=== PATIENT | male | born 1950 | race Caucasian/White ===

== ENCOUNTER 2017-04-27 12:57 | Observation (INO) | payer MEDICARE ==
[2017-04-27] MEDS ORDERED: Dexamethasone IV* 4 MG/ML 1 ML (4 MG) IV SLOW PU ONE (13:26)
[2017-04-27] MEDS ORDERED: diPHENhydraMINE IV* 50 MG/ML 1 ml VIAL (BENADRYL) IV ONE (13:26)
[2017-04-27] MEDS ORDERED: NS 0.9% 1000 ML* 1,000 ML IV ONE ×3 (13:26→16:30)
[2017-04-27] MEDS ORDERED: Famotidine IV* 10 MG/ML 2 ML (20 mg) IV ONE (13:26)
--- NOTE | 2017-04-27 14:00 | RAD ---
INDICATION: Chest pain. COMPARISON: There are no prior studies available for comparison. TECHNIQUE: A portable view of the chest was obtained. FINDINGS: Cardiac and mediastinal contours appear to be within normal limits. The lungs are underinflated. There are minimal infiltrates at both lung bases most consistent with atelectasis. No pleural effusion or pneumothorax is seen. IMPRESSION: NO EVIDENCE FOR ACUTE FINDING.
[2017-04-27 14:02] LABS: Hematocrit 40 % (42-52); Hemoglobin 13.7 g/dl (14.0-18.0); Mean Corpuscular HGB Conc 35 g/dl (31-36); Mean Corpuscular Hemoglobin 30 pg (27-31); Mean Corpuscular Volume 87 fL (80-94); Mean Platelet Volume 7 um3 (7.4-10.4); Red Cell Distribution Width 15 % (10.5-15); White Blood Count 2.1 10^3/ul (3.5-10.8)
[2017-04-27 14:03] LABS: Add Diff/Slide Review? Slide Review Added; Comments Flag Yes
[2017-04-27 14:24] LABS: ALT 12 U/L (7-52); AST 15 U/L (13-39); Albumin 3.5 g/dL (3.2-5.2); Alkaline Phosphatase 125 U/L (34-104); Anion Gap 7 mmol/L (2-11); BUN/Creatinine Ratio 14.2 (8-20); Blood Urea Nitrogen 17 mg/dL (6-24); C Reactive Protein < 1.00 mg/L (< 5.00); CO2 Carbon Dioxide 23 mmol/L (22-32); Calcium 8.8 mg/dL (8.6-10.3); Chloride 108 mmol/L (101-111); EGFR African American 77.4 (>60); EGFR Non-African American 60.2 (>60); Globulin 2.6 g/dL (2-4); Glucose 115 mg/dL (70-100); Potassium 3.5 mmol/L (3.5-5.0); Sodium 138 mmol/L (133-145); Total Protein 6.1 g/dL (6.4-8.9)
[2017-04-27] MEDS ORDERED: EPINEPHrine AMP 1 MG/ML SUBCUT ONE (15:36)
[2017-04-27] MEDS ORDERED: diPHENhydraMINE PO* 50 MG PO PRN ×2 (16:30→20:20)
[2017-04-27] MEDS ORDERED: Acetaminophen TAB* 325 MG PO PRN (16:30)
[2017-04-27 17:44] LABS: Vitamin B12 146 pg/mL (180-914)
[2017-04-27] MEDS ORDERED: Iohexol 350* (CONTRAST) 500 ML MDV IV ONE (18:14)
[2017-04-27] MEDS: Omeprazole CAP* 20 MG PO SCH (18:28)
[2017-04-27] MEDS: Penicillin VK TAB* 250 MG PO SCH ×2 (18:33→20:54)
[2017-04-27] MEDS: predniSONE TAB* 20 MG PO SCH (18:33)
--- NOTE | 2017-04-27 18:46 | ED ---
Raquel Walters Thomas, scribed for Harman Erazo MD on 04/27/17 at 1328 . HPI Chest Pain - HPI Summary HPI Summary: The pt is a 67 y/o M presenting to the ED c/o SOB and chest tightness that began today about 12:00. This CP does not radiate and he describes it as a pressure. He rates the pain 5/10. He ate a piece of coconut cake shortly prior to this onset of this chest pain. The patient does not have a history of anaphylaxis to coconut, although his mother was allergic to coconut. He has never had anaphylaxis before. The pain is aggravated and alleviated by nothing. 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 At time of examination, his BP is 82/42, although his BP measured this AM at his doctors office was 108/ 68. Pt additionally c/o throat tightening. Pt denies tongue swelling, pruritus. PMHx: giardiasis. PMHx is negative for cardiac disease. - History of Current Complaint Chief Complaint: EDChestPainROMI Hx Obtained From: Patient Onset/Duration: Started Minutes Ago - onset today at 12:00, Still Present Timing: Constant Current Severity: Moderate Pain Intensity: 5 Pain Scale Used: 0-10 Numeric Chest Pain Radiates: No Character: Pressure/Squeezing Aggravating Factor(s): Nothing Alleviating Factor(s): Nothing Associated Signs and Symptoms: Positive: Chest Pain, Shortness of Breath, Other : - POS: throat tightening; NEG: tongue swelling, pruritus. - Allergy/Home Medications Allergies/Adverse Reactions: Allergies Allergy/AdvReac Type Severity Reaction Status Date / Time ENVIRONMENTAL/SEASONAL Allergy STUFFY, Uncoded 01/27/16 13:34 HAYFEVER SNEEZING Home Medications: Home Medications Penicillin VK TAB* [Penicillin VK 250 mg Tab*] 250 mg PO QID 04/27/17 [History Confirmed 04/27/17] PMH/Surg Hx/FS Hx/Imm Hx Previously Healthy: No GI History: Reports: Hx Gastroesophageal Reflux Disease - OMEPRAZOLE History: Reports: Hx Kidney Stones - STONE REMOVED 2-3 YEARS AGO Sensory History: Reports: Hx Contacts or Glasses - READING GLASSES Denies: Hx Hearing Aid Opthamlomology History: Reports: Hx Contacts or Glasses - READING GLASSES - Surgical History Surgery Procedure, Year, and Place: 2010 CYSTOSCOPY FOR RIGHT KIDNEY STONE, [place]. TONSILLECTOMY A CHILD,. 2009 M[facility]ANOMA REMOVED FROM [facility], OFFICE Hx Anesthesia Reactions: No - Immunization History Date of Tetanus Vaccine: within 8 years per pt Date of Influenza Vaccine: never Infectious Disease History: Yes - Hx Giardiasis Infectious Disease History: Denies: History Other Infectious Disease, Traveled Outside the [place] in Last 30 Days - Family History Known Family History: Positive: Cardiac Disease, Other - POS: coconut allergy - Social History Alcohol Use: Rare Substance Use Type: Reports: None Smoking Status (MU): Former Smoker Review of Systems Positive: Other - POS: throat tightening; NEG: tongue swelling Positive: Chest Pain - characterized as tightness, Other - POS: hypotensive Positive: Shortness Of Breath Negative: Other - NEG: pruritus All Other Systems Reviewed And Are Negative: Yes Physical Exam - Summary Physical Exam Summary: VITAL SIGNS: Reviewed. GENERAL: ~Patient is a well-developed and nourished male who is lying comfortable in the stretcher. ~Patient is not in any acute respiratory distress. HEAD AND FACE: No signs of trauma. ~No ecchymosis, hematomas or skull depressions. No sinus tenderness. EYES: Injected conjunctiva. PERRLA, EOMI x 2, no nystagmus. EARS: Hearing grossly intact. Ear canals and tympanic membranes are within normal limits. MOUTH: Oropharynx within normal limits. NECK: Supple, trachea is midline, no adenopathy, no JVD, no carotid bruit, no c- spine tenderness, neck with full ROM. CHEST: Symmetric, no tenderness at palpation LUNGS: Clear to auscultation bilaterally. No wheezing or crackles. CVS: Regular rate and rhythm, S1 and S2 present, no murmurs or gallops appreciated. ABDOMEN: Soft, non-tender. No signs of distention. No rebound no guarding, and no masses palpated. Bowel sounds are normal. EXTREMITIES: FROM in all major joints, no edema, no cyanosis or clubbing. NEURO: Alert and oriented x 3. No acute neurological deficits. Speech is normal and follows commands. SKIN: Dry and warm Triage Information Reviewed: Yes Vital Signs On Initial Exam: Initial Vitals Temp Pulse Resp BP Pulse Ox 98.1 F 68 18 82/42 97 04/27/17 13:09 04/27/17 13:09 04/27/17 13:09 04/27/17 13:09 04/27/17 13:09 Vital Signs Reviewed: Yes Diagnostics - Vital Signs Vital Signs Temp Pulse Resp BP Pulse Ox 04/27/17 13:09 98.1 F 68 18 82/42 97 - Laboratory Lab Results: Lab Results 04/27/17 04/27/17 04/27/17 Range/Units 13:54 13:54 13:54 WBC 2.1 L (3.5-10.8) 10^3/ul RBC 4.60 (4.0-5.4) 10^6/ul Hgb 13.7 L (14.0-18.0) g/dl Hct 40 L (42-52) % MCV 87 (80-94) fL MCH 30 (27-31) pg MCHC 35 (31-36) g/dl RDW 15 (10.5-15) % Plt Count 222 (150-450) 10^3/ul MPV 7 L (7.4-10.4) um3 Neut % (Auto) 68.7 (38-83) % Lymph % (Auto) 29.8 (25-47) % Pender % (Auto) 0.6 L (1-9) % Eos % (Auto) 0.6 (0-6) % Baso % (Auto) 0.3 (0-2) % Absolute Neuts (auto) 1.4 L (1.5-7.7) 10^3/ul Absolute Lymphs (auto) 0.6 L (1.0-4.8) 10^3/ul Absolute Monos (auto) 0 (0-0.8) 10^3/ul Absolute Eos (auto) 0 (0-0.6) 10^3/ul Absolute Basos (auto) 0 (0-0.2) 10^3/ul Absolute Nucleated RBC 0 10^3/ul Nucleated RBC % 0.1 D-Dimer, Quantitative 782 H (Less Than 230) ng/mL Sodium 138 (133-145) mmol/L Potassium 3.5 (3.5-5.0) mmol/L Chloride 108 (101-111) mmol/L Carbon Dioxide 23 (22-32) mmol/L Anion Gap 7 (2-11) mmol/L BUN 17 (6-24) mg/dL Creatinine 1.20 H (0.67-1.17) mg/dL Est GFR ( Amer) 77.4 (>60) Est GFR (Non-Af Amer) 60.2 (>60) BUN/Creatinine Ratio 14.2 (8-20) Glucose 115 H (70-100) mg/dL Calcium 8.8 (8.6-10.3) mg/dL Total Bilirubin 0.60 (0.2-1.0) mg/dL AST 15 (13-39) U/L ALT 12 (7-52) U/L Alkaline Phosphatase 125 H (34-104) U/L Troponin I 0.00 (<0.04) ng/mL C-Reactive Protein < 1.00 (< 5.00) mg/L Total Protein 6.1 L (6.4-8.9) g/dL Albumin 3.5 (3.2-5.2) g/dL Globulin 2.6 (2-4) g/dL Albumin/Globulin Ratio 1.3 (1-3) Vitamin B12 146 L (180-914) pg/mL Result Diagrams: 04/27/17 13:54 04/27/17 13:54 Lab Statement: Any lab studies that have been ordered have been reviewed, and results considered in the medical decision making process. - Radiology CXR Xray Interpretation: No Acute Changes - No evidence for acute disease. ED physician has reviewed this report and agrees. Radiology Interpretation Completed By: Radiologist - EKG 13:16 Cardiac Rate: NL - 66 BPM EKG Interpretation: Sinus rhythm. No ST elevations. Normal [place]. Chest Pain Course/Dx - Course Assessment/Plan: The pt is a 67 y/o M presenting to the ED c/o SOB and chest tightness that began today about 12:00. This CP does not radiate and he describes it as a pressure. He rates the pain 5/10. He ate a piece of coconut cake shortly prior to this onset of this chest pain. The patient does not have a history of anaphylaxis to coconut, although his mother was allergic to coconut. He has never had anaphylaxis before. The pain is aggravated and alleviated by nothing. 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 At time of examination, his BP is 82/42, although his BP measured this AM at his doctors office was 108/68. Pt additionally c/o throat tightening. Pt denies tongue swelling, pruritus. PMHx: giardiasis. PMHx is negative for cardiac disease. Test results are within normal limits except WBC 2.1, hematocrit and hemoglobin 13.7/40, and neutrophils of 1.4. The patient is neutropenic and this is a new finding compared to labs in the past. Creatinine is 1.2. CXR is normal. I believe that the symptoms are probably secondary to an anaphylactic reaction since the patient is itching and feeling the throat is closing. The patient as given Decadron, Benadryl, Pepcid, and Epinephrine. The patient was also given 2L of IV fluids. I discussed the case with Dr. Vela, who recommends follow up as an outpatient for neutropenia. He recommended to do a vitamin B12 level and he would follow up. However, since the patient is hypotensive, I discussed the case with Dr. Marrero, who accepts the patient for admission. - Chest Pain Differential Diagnosis/HQI/PQRI: ACS, Angina, Chest Wall, GI Disease, Lower Respiratory Infection, Other: - Anaphylactic Reaction, - Diagnoses Provider Diagnoses: Anaphylactic reaction, Chest pain - Provider Notifications Discussed Care Of Patient With: Tello Vela Time Discussed With Above Provider: 15:00 - About 15:00 Instructed by Provider To: Other - I consulted with Dr. Vela, [facility], and he wants a B12 done. I also consulted with Dr. Marrero, hospitalist, who admits the patient at 15:32. Discharge - Discharge Plan Condition: Fair Disposition: ADMITTED TO [facility] Discharge Disposition Comment: By Dr. Marrero The documentation as recorded by the Raquel singh Thomas accurately reflects the service I personally performed and the decisions made by me, Harman Erazo MD.
[2017-04-27 18:50] LABS: EGFR African American 76.7 (>60); EGFR Non-African American 59.6 (>60)
--- NOTE | 2017-04-27 19:19 | RAD ---
HISTORY: Chest pain, shortness of breath COMPARISONS: None TECHNIQUE: Multiple contiguous axial CT scans of the chest were obtained after the administration of nonionic intravenous contrast, timed to the pulmonary arterial phase of contrast enhancement.. Coronal and sagittal multiplanar reformations are also submitted for review. FINDINGS: NECK AND THYROID: The lower neck and thyroid are unremarkable. CHEST WALL: There is no lower cervical, axillary, or supraclavicular lymphadenopathy by size criteria. HEART AND PERICARDIUM: The heart is unremarkable. AORTA AND PULMONARY VASCULATURE: There is no pulmonary arterial filling defect to suggest pulmonary embolism. There is no linear filling defect within the aorta to suggest aortic dissection. MEDIASTINUM: There is no mediastinal lymphadenopathy by size criteria. ALE: There is no hilar lymphadenopathy by size criteria. AIRWAY AND ESOPHAGUS: The esophagus is patulous. There is a moderate-sized paraesophageal hiatal hernia. LUNG PARENCHYMA: There is minimal dependent atelectasis of the lung bases bilaterally. PLEURA: No pleural abnormalities are noted. UPPER ABDOMEN: The upper abdomen is unremarkable. BONES AND SOFT TISSUES: Degenerative changes are noted along the spine. OTHER: None. IMPRESSION: 1. NO PULMONARY ARTERIAL FILLING DEFECT TO SUGGEST PULMONARY EMBOLISM. 2. HIATAL HERNIA
[2017-04-27 19:36] LABS: Urine Bacteria Absent (Absent); Urine Bilirubin Negative (Negative); Urine Glucose Negative (Negative); Urine Nitrite Negative (Negative)
[2017-04-27] MEDS: Heparin VIAL(*) 5000 UNITS/ML VIAL (FIVE THOUSAND) SUBCUT SCH (20:54)
--- NOTE | 2017-04-27 20:55 | HP ---
CC: Dr. Naik * HISTORY AND PHYSICAL: DATE OF ADMISSION: 04/27/17 PRIMARY CARE PROVIDER: Dr. Naik. ATTENDING PHYSICIAN WHILE IN THE HOSPITAL: Meli Frias MD * (report dictated by Thomas Quiñones NP). CHIEF COMPLAINT: 1. Chest tightness. 2. Shortness of breath. HISTORY OF PRESENT ILLNESS: Mr. Alan is a 67-year-old male patient, who has a history of nephrolithiasis, melanoma, IBS, BPH, and GERD. He comes into the ER today stating that last night he had a piece of coconut cake and did fine with it. He had another piece this morning and then he had a piece this afternoon. In addition, there is a new medication, is also penicillin, but he has been taking that for last couple of days and he has been doing okay with it , but today, after taking this third piece of coconut cake, he started getting chest tightness, he was feeling short of breath. He says his lips did not swell. He had no urticaria. He had no itching. He had no lip swelling and no throat pain, but he had chest tightness, felt short of breath. He drove himself into the hospital as he was concerned he is having an allergic reaction as his mother had significant reaction to coconuts in the past. He came into the ER, he was given steroids, Benadryl, and Pepcid, but despite this his blood pressure remained on the low side in the 80s. He was also just given epinephrine. He started having chest pressure, pain, and shortness of breath. He says that those symptoms resolved now and he felt nauseated, he felt really dizzy. He was concerned, he got in his car and drove here to the hospital. He says about a week ago, he did have some dental work done. He had 5 teeth extraction. He has been on penicillin for the last few days as there was an implant put in. He has taken penicillin in the past and he did fine with that. He came into the ED and it was noted that he was hypotensive. It was noted that he was having difficulty, particularly the chest discomfort and there was concern for an allergic reaction and because of the hypotension, we were asked to evaluate. He denies having any syncope. He does state that he takes Cialis routinely, he has been on this for about a year. He denied having any nitrates today for the chest pain. He does also give a report for the last 3 months he has been feeling fatigued, just not feeling well and feeling nauseated at times. So, because of the hypotension, the reaction, we are asked to evaluate for admission. PAST MEDICAL HISTORY: Significant for: 1. Nephrolithiasis. 2. Melanoma. 3. IBS. 4. GERD. 5. BPH. PAST SURGICAL HISTORY: 1. He has had tonsillectomy. 2. He has had teeth extraction. HOME MEDICATIONS: According to his recall include: 1. Penicillin 250 p.o. 4 times a day. 2. Cialis 5 mg daily. 3. Paxil 10 mg daily. 4. Omeprazole 20 mg daily in the morning. ALLERGIES TO MEDICATIONS: Include none, I am going to list COCONUT now as an allergy. FAMILY HISTORY: Both his parents lived to the age of 100. His father had Paget 's disease. Mother of lung cancer. SOCIAL HISTORY: He does not smoke. He rarely drinks alcohol. He is . Surrogate decision maker is his neighbor. REVIEW OF SYSTEMS: There is no documented fever. He denied any significant weight change. There was no double vision. There was no ear discharge. He denies having any rhinorrhea. No sore throat. There was chest pain per my HPI , but none now. He did admit to having shortness of breath, but now resolved. No dysuria. No frequency. There was no loss of consciousness. No abdominal pain. One episode of nausea, but no vomiting. Review of 14 systems completed, all others negative. PHYSICAL EXAMINATION GENERAL: At this time, Mr. Alan is a 67-year-old male patient. He is sitting in the ER stretcher. He does not appear to be in any acute distress. VITAL SIGNS: Blood pressure 88/42, his last one before moving upstairs 92/50; pulse 79; respirations were 18; O2 sat 94%; temperature 99.7. HEENT: Head is atraumatic and normocephalic. Eyes: EOMs are intact. Sclerae anicteric. Throat: Oral mucosa appears to be dry. No oropharyngeal erythema. NECK: Supple. LUNGS: Clear to auscultation bilaterally. No wheezes, rales, or rhonchi. HEART: Sounds S1, S2. Regular rate and rhythm. No murmurs, rubs, or gallops. ABDOMEN: Soft, flat, and nontender. Bowel sounds present. EXTREMITIES: Pulses 2+ throughout. He is able to move all 4 extremities with 5 /5 strength. NEUROLOGICAL: He is awake, he is alert, and oriented x3. Tongue midline. Ggrips were equal. No gross focal deficits. SKIN: Intact. I did not appreciate any urticaria or rashes. DIAGNOSTIC STUDIES/LAB DATA: Labs today revealed WBC of 2.1, RBC of 4.60, hemoglobin 13.7, hematocrit of 40, and platelet count of 222. Sodium was 138, potassium 3.5, chloride of 108, bicarb 23, BUN 17, creatinine 1.20, glucose 115 , calcium 8.8. Total bili 0.68, AST 15, ALT 12, alk phos 125. Troponin was 0. CRP less than 1. His albumin was 3.5. He did have a chest x-ray obtained today, impression: No evidence for acute finding. EKG obtained today, no previous for comparison, but today's EKG showed a normal sinus rhythm with a rate of 66. No ST elevations or T-wave inversions were noted. Old medical records reviewed. ASSESSMENT AND PLAN: Mr. Alan is a 67-year-old male patient coming into the ER today with complaints of chest tightness in the setting of the coconut exposure. He ate coconut 3 times. He came into the ED because of chest discomfort, shortness of breath. There is a concern for an allergic reaction. We were asked to evaluate for admission. He will be admitted under observation status for: 1. Allergic reaction. Again, at this point, certainly it is in the differential he may have an allergic reaction to the penicillin or possibly to coconut. He has had penicillin in the past, so I am suspectful that it could be the coconut. We have given him a dose of epi, it seems like with the epi his pressures did come up. We will give him another liter of fluids. We will put him on steroids and also p.r.n. Benadryl and continue with him on Pepcid. We will follow him closely. 2. Chest pain. Again, mostly likely it is related to a reaction; however, I would like to cycle his troponin minimally and check the D-dimer, if this is elevated, I will get a CTA of the chest. 3. Leukopenia. Etiologies include he has been fatigued for 3 months. He certainly could have a recent viral illness. I would like to watch him for any fevers. I will fletcher culture him and we will repeat the CBC in the morning. If it persists, we may need to consider getting an ID consult. He did have giardia recently, but he is only having 1 bowel movement in the morning. He is having copious liquid bowel movements. I would resend this for followup. We will continue to follow. 4. Recent dental extractions. Again, because of the leukopenia, I am going to check the blood cultures. He will continue just his penicillin for now and we will continue to monitor. 5. History of nephrolithiasis. Not an active issue. 6. Melanoma. Follow up with his primary. 7. Irritable bowel syndrome. We will continue meds as prescribed. 8. Gastroesophageal reflux disease. PPI therapy. 9. Benign prostatic hyperplasia. I am holding the Cialis as this can make the hypotension worse and can cause orthostasis and we may need to consider another agent. 10. DVT prophylaxis: He will be placed on heparin subcu. 11. Code status: Full code. 12. Fluids, electrolytes, and nutrition: He can have a heart-healthy diet. TIME SPENT: Time spent on the admission was 60 minutes, greater than half the time spent [id number] with the patient obtaining my history and physical, the other half the time was spent going over the plan of care with the patient and implementing plan of care. I did discuss the plan of care with my attending, Dr. Frias, she is in agreement. THOMAS QUIÑONES, IRINA [id number]/[facility] #: [id number] PAPO
[2017-04-27] MEDS: NS 0.9% 1000 ML* 1,000 ML IV SCH (22:37)
[2017-04-28 05:09] LABS: Hematocrit 33 % (42-52); Hemoglobin 11.3 g/dl (14.0-18.0); Mean Corpuscular HGB Conc 35 g/dl (31-36); Mean Corpuscular Hemoglobin 30 pg (27-31); Mean Corpuscular Volume 87 fL (80-94); Mean Platelet Volume 8 um3 (7.4-10.4); Red Blood Count 3.75 10^6/ul (4.0-5.4); Red Cell Distribution Width 15 % (10.5-15); White Blood Count 11.9 10^3/ul (3.5-10.8)
[2017-04-28] MEDS: Heparin VIAL(*) 5000 UNITS/ML VIAL (FIVE THOUSAND) SUBCUT SCH (05:29)
[2017-04-28 06:01] LABS: BUN/Creatinine Ratio 16.2 (8-20); Calcium 8.2 mg/dL (8.6-10.3); EGFR African American 70.6 (>60); EGFR Non-African American 54.9 (>60); Potassium 4.4 mmol/L (3.5-5.0)
[2017-04-28] MEDS: Omeprazole CAP* 20 MG PO SCH (07:11)
[2017-04-28] MEDS: NS 0.9% 1000 ML* 1,000 ML IV SCH (07:11)
[2017-04-28] MEDS: predniSONE TAB* 20 MG PO SCH (08:56)
[2017-04-28] MEDS: Penicillin VK TAB* 250 MG PO SCH (08:56)
[2017-04-28] MEDS ORDERED: Famotidine TAB* 20 MG PO SCH (09:00)
[2017-04-28] MEDS ORDERED: PARoxetine HCL TAB* 10 MG PO SCH (09:00)
--- NOTE | 2017-04-28 11:10 | PN ---
Subjective Date of Service: 04/28/17 Interval History: Patient seen and examined at bedside. Patient denies any dizziness even though systolic BP in the upper 80s. Has not been out of bed yet. Family History: Unchanged from Admission Social History: Unchanged from Admission Past Medical History: Unchanged from Admission Objective Active Medications: Acetaminophen (Tylenol Tab*) 650 mg PO Q4H PRN Diphenhydramine HCl (Benadryl Po*) 50 mg PO Q6H PRN Diphenhydramine HCl (Benadryl Po*) 50 mg PO BEDTIME PRN Famotidine (Pepcid Tab*) 20 mg PO BID [facility] Heparin Sodium (Porcine) (Heparin Vial(*)) 5,000 units SUBCUT Q8HR [facility] Omeprazole (Prilosec Cap*) 20 mg PO QAM@0730 [facility] Paroxetine HCl (Paxil Tab*) 10 mg PO DAILY [facility] Penicillin V Potassium (Penicillin Vk Tab*) 250 mg PO QID [facility] Prednisone (Deltasone Tab*) 40 mg PO DAILY [facility] Vital Signs 04/27/17 04/27/17 04/27/17 15:40 16:00 16:20 Temperature Pulse Rate 82 82 Respiratory Rate Blood Pressure 81/55 82/60 78/57 (mmHg) O2 Sat by Pulse 96 95 Oximetry 04/27/17 04/27/17 04/27/17 17:57 17:58 18:00 Temperature Pulse Rate 80 79 Respiratory 29 18 27 Rate Blood Pressure 99/66 (mmHg) O2 Sat by Pulse 96 94 Oximetry Appearance: sitting up in bed, NAD Eyes: No Scleral Icterus, PERRLA Ears/Nose/Mouth/Throat: NL Teeth, Lips, Gums Neck: NL Appearance and Movements; NL JVP Respiratory: Symmetrical Chest Expansion and Respiratory Effort, Clear to Auscultation Cardiovascular: NL Sounds; No Murmurs; No JVD, RRR Abdominal: NL Sounds; No Tenderness; No Distention Extremities: No Edema Skin: No Rash or Ulcers Neurological: Alert and Oriented x 3, NL Muscle Strength and Tone Nutrition: Taking PO's Result Diagrams: 04/28/17 04:46 04/28/17 04:45 Assess/Plan/Problems-Billing Patient is a 89 y/o M w/ PMH significant for BPH and IBS who presented to the ER on 04/27/2017 for concern for an allergic reaction after coconut exposure. - Patient Problems (1) Allergic reaction (2) Chest tightness or pressure Status and Disposition: Patient stable to be discharged home.
[2017-04-28 12:01] VITALS: BP 94/53
--- NOTE | 2017-04-29 03:17 | DS ---
CC: Dr. Linus Naik * DISCHARGE SUMMARY: DATE OF ADMISSION: 04/27/17 DATE OF DISCHARGE: 04/28/17 PRIMARY CARE PROVIDER: Dr. Naik. ATTENDING PHYSICIAN: Dr. Nabeel Najera * (report dictated by Jessie Xavier NP). PRIMARY DIAGNOSES: 1. Possible allergic reaction. 2. Chest tightness. SECONDARY DIAGNOSES: 1. Nephrolithiasis. 2. Melanoma. 3. Irritable bowel syndrome. 4. Gastroesophageal reflux disease. 5. Benign prostatic hyperplasia. STUDIES WHILE IN THE HOSPITAL: 1. Chest x-ray, 04/27/17, no evidence for any acute findings. 2. CT of the chest, 04/27/17, no pulmonary artery filling defect to suggest pulmonary embolism. Hiatal hernia. MEDICATIONS AT THE TIME OF DISCHARGE: New medication: Tylenol every 4 hours as needed. Medications to continue: 1. Prilosec 20 mg oral daily. 2. Paxil 10 mg oral daily. Medications discontinued: 1. Penicillin 250 mg oral 4 times daily. 2. Cialis 5 mg oral daily. HISTORY OF PRESENT ILLNESS AND HOSPITAL COURSE: Mr. Alan is a 67-year-old male with a history of nephrolithiasis, melanoma, BPH, GERD, IBS, who presented to the emergency room on 04/27/17 after having an episode of chest tightness and shortness of breath after eating coconut cake. The patient denied any itching or any urticaria nor lip swelling or throat pain but presented with chest tightness. In the emergency room, the patient was given steroids, Benadryl, and Pepcid in the emergency room, yet despite that his blood pressure remained low, for this reason hospitalists were asked to evaluate the patient for admission. The patient was placed on telemetry floor and monitored for 24 hours. The patient's respiratory status remained stable. The patient was continued on steroids and did not have any further episodes of chest tightness. The patient had a CT of the chest in the ER that ruled out pulmonary embolism. The patient was given multiple liters of IV fluid and this morning the patient's systolic blood pressure was up into the 90s. The patient's Cialis will be held upon discharge as this may be contributing to his orthostatic hypotension. The patient should follow up with his primary care provider within 7 to 10 days to discuss further use of the Cialis. In addition, the patient came in on penicillin, which he was taking in preparation for a dental procedure. The patient tells me that his dental procedure has been canceled, hence penicillin will be discontinued upon discharge. Upon his presentation, the patient also was found to be leukopenic. This morning, the patient's white count is up to 11,000, yet the patient should have this monitored closely as this could be simply a response to the steroids he was given last night. The patient is to have a CBC checked in approximately 1 week at his primary care provider's office. For his other medical problems, his PPI therapy was continued and Paxil was continued. On 04/28/17, vitals were as follows: Blood pressure 92/60, heart rate 62, respiratory rate 16, oxygen saturation 98% on room air, temperature 98.5. At this point, the patient was able to be discharged. DISCHARGE PLAN: The patient is discharged on a regular diet. The patient should follow up with his primary care provider within 7 to 10 days and have a CBC checked at that time. At his followup appointment, the patient is to discuss with his primary care provider the continuation of Cialis. Penicillin should be held until the patient reschedules his dental procedure. This is a summarized report of complex medical history and hospital stay. For more details, please see the entire medical record. TIME SPENT: Time for discharge was 50 minutes, and 20 minutes was spent with the patient discussing the medication at discharge and followup instructions. JESSIE XAVIER NP [id number]/[facility] #: [id number] PAPO
== END 2017-04-28 13:50 | disposition home or self-care (01) ==
LOC: ED 12:57 → INTOOBSV 15:37 → ICU 15:37 → MEDTELE 21:14
PROVIDERS: ADMIT Internal Medicine; ATTEND Internal Medicine
DX: R07.89 Other chest pain (principal); N20.0 Calculus of kidney; C43.9 Malignant melanoma of skin, unspecified; K58.9 Irritable bowel syndrome, unspecified; K21.9 Gastro-esophageal reflux disease without esophagitis; N40.0 Benign prostatic hyperplasia without lower urinary tract symptoms; Z79.899 Other long term (current) drug therapy; Z91.018 Allergy to other foods; R06.02 Shortness of breath; K44.9 Diaphragmatic hernia without obstruction or gangrene
CPT/HCPCS: 36415; 71010; 71275; 80048; 80053; 81003; 81015; 82565; 82607; 84484; 84520; 85025; 85379; 85610; 85730; 86140; 86803; 87040; 87086; 87641; 93005; 96375; 96376; 99283; A9270-GY; G0378; J0171; J1100; J1200; J1644; J7512; Q9967

== ENCOUNTER 2017-05-12 19:32 | Observation (INO) | payer MEDICARE ==
[2017-05-12] MEDS ORDERED: Aspirin Low Dose CHEW TAB* 81 MG PO ONE (19:43)
--- NOTE | 2017-05-12 20:19 | RAD ---
INDICATION: Chest pain COMPARISON: Chest x-ray April 27, 2017 TECHNIQUE: Single AP portable view of the chest was obtained. FINDINGS: Image quality is compromised due to the relative inferiority of a portable chest x-ray. There has been interval appearance of patchy density obscuring the bilateral lung bases and causing costophrenic angle blunting. More superiorly the lungs are adequately aerated. The heart borders are secured inferiorly but more superiorly the heart and mediastinum exhibit normal size and contour. Visualized bones are normal for the patient's age. IMPRESSION: Densities in the bilateral lung bases causing costophrenic angle blunting and could represent atelectasis, infiltrates or be the consequence of pulmonary edema perhaps with small pleural effusions.
[2017-05-12 20:23] LABS: Hematocrit 38 % (42-52); Hemoglobin 12.8 g/dl (14.0-18.0); Mean Corpuscular HGB Conc 34 g/dl (31-36); Mean Corpuscular Hemoglobin 30 pg (27-31); Mean Corpuscular Volume 87 fL (80-94); Mean Platelet Volume 8 um3 (7.4-10.4); Red Blood Count 4.33 10^6/ul (4.0-5.4); Red Cell Distribution Width 15 % (10.5-15)
[2017-05-12 20:43] LABS: Albumin 3.3 g/dL (3.2-5.2); BUN/Creatinine Ratio 15.9 (8-20); Calcium 8.6 mg/dL (8.6-10.3); EGFR African American 88.4 (>60); EGFR Non-African American 68.7 (>60); Globulin 2.8 g/dL (2-4); Total Bilirubin 0.7 mg/dL (0.2-1.0); Total Protein 6.1 g/dL (6.4-8.9)
[2017-05-12] MEDS ORDERED: Iohexol 350* (CONTRAST) 500 ML MDV IV ONE (20:48)
[2017-05-12] MEDS ORDERED: Acetaminophen TAB* 325 MG PO PRN (21:16)
[2017-05-12] MEDS ORDERED: Ondansetron INJ* 2 MG/ML VIAL IV PRN (21:16)
[2017-05-12] MEDS ORDERED: Omeprazole CAP* 20 MG PO PRN (21:19)
--- NOTE | 2017-05-12 21:28 | RAD ---
INDICATION: Pleuritic chest pain and shortness of breath COMPARISON: Similar examination dated April 27, 2017 TECHNIQUE: Axial source images were acquired following the administration of 72 MLO Omnipaque [address] angiographic technique. Coronal and sagittal reconstructed images were constructed and reviewed. FINDINGS: There there are no filling defects in the pulmonary arteries to indicate acute pulmonary embolic disease. There are no focal infiltrates or effusions. There are no pulmonary parenchymal masses. Similar to the prior CT examination there is mild groundglass opacification at the dependent lower lobes. The heart is normal in size. There is no evidence of pericardial effusion. There is no evidence of aortic aneurysm or dissection. There is no mediastinal, hilar, or axillary lymphadenopathy. Multilevel degenerative changes of the thoracic spine include loss of intervertebral disc height. There is a moderate size hiatal hernia. IMPRESSION: 1. No CT of evidence of pulmonary embolism. 2. Mild groundglass density seen at the bilateral dependent lower lobes could be due to mild pulmonary edema or simply hypoaeration. 3. Stable moderate size hiatal hernia.
[2017-05-12 21:50] LABS: C Reactive Protein 68.44 mg/L (< 5.00)
[2017-05-12] MEDS: Heparin VIAL(*) 5000 UNITS/ML VIAL (FIVE THOUSAND) SUBCUT SCH (22:09)
[2017-05-12 22:13] LABS: Erythrocyte Sed Rate 23 mm/Hr (0-40)
--- NOTE | 2017-05-12 23:48 | HP ---
CC: Dr. Naik * HISTORY AND PHYSICAL: DATE OF ADMISSION: 05/12/17 PRIMARY CARE PROVIDER: Dr. Naik. ATTENDING PHYSICIAN WHILE IN THE HOSPITAL: Barak Ortiz MD * (report dictated by Andrea Quiñones NP). CHIEF COMPLAINT: Chest pain. HISTORY OF PRESENT ILLNESS: Mr. Alan is a 67-year-old male patient who was here 3 weeks ago with presumably an allergic reaction. He was observed overnight, he did well. He comes back today stating that around 3 in the morning he had an episode of chest discomfort that he described as a tightness pressure, worse with taking a deep breath. He actually took some ibuprofen and he felt better. Unfortunately though this afternoon he started having discomfort again. He says that the pain was positional, when he lied back this hurt more. He says that he has not been sick recently, no recent fevers or chills. No recent nausea. No coughing. No URI symptoms. He says that the pain did get worse with exertion as well. He does state that when he tries to take a deep breath, he feels like his chest was catching and that it would hurt. He denied any recent trips or travel. He denied having any abdominal discomfort. There was no nausea or vomiting. He denied having any abdominal discomfort, but he says that again there were no fevers or chills. He denied any associated symptoms with the chest pain such as nausea, diaphoresis or shortness of breath. He came into the ER today to evaluate and there was concern for the chest discomfort, so we were asked to evaluate for admission. PAST MEDICAL HISTORY: Significant for: 1. Nephrolithiasis. 2. Melanoma. 3. IBS. 4. BPH. 5. GERD. PAST SURGICAL HISTORY: 1. He has had tonsillectomy. 2. He has had a teeth extraction. HOME MEDICATIONS: According to the patient include: 1. Paxil 10 mg daily. 2. Omeprazole 20 mg p.o. daily as needed. 3. Cialis 5 mg daily, which he recently restarted taking about a week ago. ALLERGIES TO MEDICATIONS: Include none. He is allergic to coconut. FAMILY HISTORY: Both his parents lived to the age of 100 father definitely had Paget's. He thinks his mother of CHF. SOCIAL HISTORY: He does note smoke, does not drink. Denies any recreational drug use. His surrogate decision maker is his neighbor. REVIEW OF SYSTEMS: There is no documented fever. Denied any significant weight change. No double vision. No ear discharge. No rhinorrhea. No sore throat. No thyroid enlargement. There is chest pain per my HPI. There was no orthopnea. No nocturnal dyspnea. No abdominal pain. No nausea. No vomiting. No dysuria. No frequency. No seizure. No loss of consciousness. No pruritus and no skin ulceration. Review of 14 systems completed, all others negative. PHYSICAL EXAMINATION GENERAL: At this time, Mr. Alan is a 67-year-old male patient. He is sitting in the ER stretcher. He does not appear to be in any acute distress. VITAL SIGNS: Reveals blood pressure 99/60, pulse 75, respirations were 20. O2 sat 95%. Temperature 98.5. HEENT: Head is atraumatic. Eyes: Sclerae are anicteric, not pale. Throat: Oral mucosa appears to be moist. No oropharyngeal erythema. NECK: Supple. LUNGS: Lungs are clear to auscultation bilaterally. No wheezes, rales, or rhonchi. HEART: Sounds S1, S2. Regular rate and rhythm. No murmurs, rubs, or gallops. ABDOMEN: Soft, flat, nontender. Bowel sounds present. EXTREMITIES: Pulses 2+ throughout. He is moving all 4 extremities with 5/5 strength. He had no peripheral edema. NEUROLOGIC: He is awake. He is alert. He is oriented x3. Tongue midline. Networker are equal. No gross focal deficits. SKIN: Intact. DIAGNOSTIC STUDIES/LAB DATA: WBC 10, RBC 4.33, hemoglobin 12.8, hematocrit 38 , platelet count 214,000. ESR pending. His INR was 0.91, D-dimer 601. Sodium 139, potassium of 4, chloride of 108, bicarb 27, BUN 17, creatinine 1.07, glucose 96, lactic 1.1, calcium 8.7. Total mag 2.0, total bili 2.7, AST 18, ALT 14, alk phos 101. CK 56, CK-MB 1.0, troponin 0, albumin 3.3. He did have a chest CTA done today, impression: No CT evidence of PE. Mild ground-glass densities seen in the bilateral dependent lower lobes, this could be due to mild pulmonary edema or simple hypoaeration. Stable moderate sized hiatal hernia. EKG obtained today showed normal sinus rhythm, rate of 73. No ST elevations or T- wave inversions. It was reviewed with the previous EKG, it is similar. He had a chest x-ray obtained today, impression: Densities in the bilateral lung bases causing costophrenic angle blunting and could represent atelectasis and infiltrates or pulmonary edema, perhaps with small pleural effusions. Old medical records reviewed. ASSESSMENT AND PLAN: Mr. Alan is a 67-year-old male patient coming into the ED with complaints today of chest discomfort. There was concern this could represent acute coronary syndrome. We were asked to evaluate for admission, he will be admitted under observation status for: 1. Chest pain. The symptoms are atypical; however, it is concerning that he does have this question of pulmonary edema bilaterally. My plan would be to go ahead and cycle his troponins, get a stress test. I am going to get an echo as well because of the effusion, I would like to get an accurate measurement of his EF. I am checking an ESR, CRP as the pain is positional, again which could be pericarditis is another reason why I would like an echo. In addition, I just placed him on telemetry, check an A1c, check lipid panel. We will start on aspirin and will continue to follow. 2. History of nephrolithiasis. Not an active issue. 3. Melanoma. Follow up with Dr. Naik. 4. Irritable bowel syndrome: Not an active issue. Currently we will monitor. 5. Benign prostatic hypertrophy. Continue with his Cialis. His blood pressure appears to be stable here. We will follow this closely. 6. Gastroesophageal reflux disease. Continue PPI therapy. 7. DVT prophylaxis. He will be placed on heparin subcu. 8. Code status. Full code. 9. Fluids, electrolytes and nutrition. He can have a heart healthy diet and n.p.o. after midnight. TIME SPENT: Time spent on the admission was 60 minutes, greater than half time was spent [id number] with the patient obtaining my history and physical, other half the time was spent going over the plan of care with the patient and implementing the plan of care. I did discuss plan of care with my attending, Dr. Ortiz, he is in agreement. ANDREA QUIÑONES NP [id number]/[facility] #: [id number] [facility] INSANEAntonio
--- NOTE | 2017-05-13 01:28 | ED ---
Sonia Walters Alfonso, scribed for Lauren Dick MD on 05/12/17 at 2013 . HPI Chest Pain - HPI Summary HPI Summary: This patient is a 67 year old M presenting to [facility] with a chief complaint of intermittent aching and stabbing CP since 0300 this am when the CP awoke him from sleep, worse since two hours ago. He reports heavy lifting yesterday and that it feels like a muscular thing. The CP does not radiate. The patient rates the pain 2/10 at baseline and 8/10 at its worse in severity. Symptoms aggravated by deep breaths. Symptoms alleviated by ibuprofen and sitting upright. Patient reports SOB. He denies taking blood thinning medications, no hx DVT or PE. He takes Cialis and Omeprazole daily. He states it does not feel like his GERD, but he has had a similar CP in the past. Pt denies cough, fever and URI symptoms. States he has not had a stress test and has not been endoscoped recently. States he was admitted overnight to [facility] 3 weeks ago after possible allergic reaction to coconut. - History of Current Complaint Chief Complaint: EDChestPainROMI Time Seen by Provider: 05/12/17 19:42 Hx Obtained From: Patient Onset/Duration: Started Hours Ago, Worse Since - 2 hours Timing: Intermittent Initial Severity: Moderate Current Severity: Severe Pain Intensity: 8 - 2/10 basline. 8/10 at worse. Pain Scale Used: 0-10 Numeric Chest Pain Location: Mid Sternal Chest Pain Radiates: No Character: Dull/Aching, Sharp/Stabbing Aggravating Factor(s): Deep Breaths Alleviating Factor(s): Other: - ibuprofen and sitting upright. Associated Signs and Symptoms: Positive: Chest Pain, Shortness of Breath. Negative: Fever, Cough, Productive Cough, Nonproductive Cough, Nasal Congestion , URI - Allergy/Home Medications Allergies/Adverse Reactions: Allergies Allergy/AdvReac Type Severity Reaction Status Date / Time ENVIRONMENTAL/SEASONAL Allergy STUFFY, Uncoded 01/27/16 13:34 HAYFEVER SNEEZING Home Medications: Home Medications Tadalafil [Cialis] 5 mg PO DAILY 05/12/17 [History Confirmed 05/12/17] PMH/Surg Hx/FS Hx/Imm Hx Previously Healthy: No GI History: Reports: Hx Gastroesophageal Reflux Disease - OMEPRAZOLE History: Reports: Hx Kidney Stones - STONE REMOVED 2-3 YEARS AGO Sensory History: Reports: Hx Contacts or Glasses - READING GLASSES Denies: Hx Hearing Aid Opthamlomology History: Reports: Hx Contacts or Glasses - READING GLASSES - Cancer History Cancer Type, Location and Year: [facility] - Surgical History Surgery Procedure, Year, and Place: 2010 CYSTOSCOPY FOR RIGHT KIDNEY STONE, [place]. TONSILLECTOMY A CHILD,. 2009 M[facility]OMA REMOVED FROM [facility], OFFICE Hx Anesthesia Reactions: No - Immunization History Date of Tetanus Vaccine: within 8 years per pt Date of Influenza Vaccine: never Infectious Disease History: No Infectious Disease History: Denies: History Other Infectious Disease, Traveled Outside the [place] in Last 30 Days - Family History Known Family History: Positive: Cardiac Disease, Other - coconut allergy mother ; negative aneurysm - Social History Alcohol Use: Rare Substance Use Type: Reports: None Smoking Status (MU): Former Smoker Review of Systems Negative: Fever Positive: Chest Pain Positive: Shortness Of Breath Gastrointestinal: Negative Positive: Other - no calf tenderness Skin: Negative Neurological: Negative Psychological: Normal All Other Systems Reviewed And Are Negative: Yes Physical Exam Triage Information Reviewed: Yes Vital Signs On Initial Exam: Initial Vitals Temp Pulse Resp BP Pulse Ox 98.5 F 78 18 117/68 100 05/12/17 19:34 05/12/17 19:34 05/12/17 19:34 05/12/17 19:34 05/12/17 19:34 Vital Signs Reviewed: Yes Appearance: Positive: Well-Appearing, Well-Nourished, Pain Distress Skin: Positive: Warm, Skin Color Reflects Adequate Perfusion Head/Face: Positive: Normal Head/Face Inspection Eyes: Positive: Conjunctiva Clear ENT: Positive: Normal ENT inspection Neck: Positive: Supple Respiratory/Lung Sounds: Positive: Breath Sounds Present, Decreased Breath Sounds, Other - No respiratory distress. Negative: Wheezes Cardiovascular: Positive: RRR, Pulses are Symmetrical in both Upper and Lower Extremities, Other - Brisk capillary refill. Negative: Murmur Abdomen Description: Positive: Nontender, Soft Bowel Sounds: Positive: Present Musculoskeletal: Positive: Strength/ROM Intact. Negative: Jb Sign Left, Jb Sign Right, Edema Left, Edema Right Neurological: Positive: Sensory/Motor Intact, Alert, Oriented to Person Place, Time, Facial Symmetry, Speech Normal Psychiatric: Positive: Normal Diagnostics - Vital Signs Vital Signs Temp Pulse Resp BP Pulse Ox 05/12/17 19:34 98.5 F 78 18 117/68 100 - Laboratory Lab Results: Lab Results 05/12/17 05/12/17 05/12/17 Range/Units 20:08 20:08 20:08 WBC 10.0 (3.5-10.8) 10^3/ul RBC 4.33 (4.0-5.4) 10^6/ul Hgb 12.8 L (14.0-18.0) g/dl Hct 38 L (42-52) % MCV 87 (80-94) fL MCH 30 (27-31) pg MCHC 34 (31-36) g/dl RDW 15 (10.5-15) % Plt Count 214 (150-450) 10^3/ul MPV 8 (7.4-10.4) um3 Neut % (Auto) 82.9 (38-83) % Lymph % (Auto) 10.2 L (25-47) % Adams % (Auto) 5.1 (1-9) % Eos % (Auto) 1.5 (0-6) % Baso % (Auto) 0.3 (0-2) % Absolute Neuts (auto) 8.3 H (1.5-7.7) 10^3/ul Absolute Lymphs (auto) 1.0 (1.0-4.8) 10^3/ul Absolute Monos (auto) 0.5 (0-0.8) 10^3/ul Absolute Eos (auto) 0.2 (0-0.6) 10^3/ul Absolute Basos (auto) 0 (0-0.2) 10^3/ul Absolute Nucleated RBC 0.01 10^3/ul Nucleated RBC % 0.1 ESR 23 (0-40) mm/Hr INR (Anticoag Therapy) (0.89-1.11) D-Dimer, Quantitative (Less Than 230) ng/mL Sodium 139 (133-145) mmol/L Potassium 4.0 (3.5-5.0) mmol/L Chloride 108 (101-111) mmol/L Carbon Dioxide 27 (22-32) mmol/L Anion Gap 4 (2-11) mmol/L BUN 17 (6-24) mg/dL Creatinine 1.07 (0.67-1.17) mg/dL Est GFR ( Amer) 88.4 (>60) Est GFR (Non-Af Amer) 68.7 (>60) BUN/Creatinine Ratio 15.9 (8-20) Glucose 96 (70-100) mg/dL Lactic Acid (0.5-2.0) mmol/L Calcium 8.6 (8.6-10.3) mg/dL Magnesium 2.0 (1.9-2.7) mg/dL Total Bilirubin 0.70 (0.2-1.0) mg/dL AST 18 (13-39) U/L ALT 14 (7-52) U/L Alkaline Phosphatase 101 (34-104) U/L Total Creatine Kinase 56 (10-223) U/L CK-MB (CK-2) 1.0 (0.6-6.3) ng/mL Troponin I 0.00 (<0.04) ng/mL C-Reactive Protein 68.44 H (< 5.00) mg/L B-Natriuretic Peptide 68 ( - 100) pg/mL Total Protein 6.1 L (6.4-8.9) g/dL Albumin 3.3 (3.2-5.2) g/dL Globulin 2.8 (2-4) g/dL Albumin/Globulin Ratio 1.2 (1-3) 05/12/17 05/12/17 Range/Units 20:08 20:08 WBC (3.5-10.8) 10^3/ul RBC (4.0-5.4) 10^6/ul Hgb (14.0-18.0) g/dl Hct (42-52) % MCV (80-94) fL MCH (27-31) pg MCHC (31-36) g/dl RDW (10.5-15) % Plt Count (150-450) 10^3/ul MPV (7.4-10.4) um3 Neut % (Auto) (38-83) % Lymph % (Auto) (25-47) % Adams % (Auto) (1-9) % Eos % (Auto) (0-6) % Baso % (Auto) (0-2) % Absolute Neuts (auto) (1.5-7.7) 10^3/ul Absolute Lymphs (auto) (1.0-4.8) 10^3/ul Absolute Monos (auto) (0-0.8) 10^3/ul Absolute Eos (auto) (0-0.6) 10^3/ul Absolute Basos (auto) (0-0.2) 10^3/ul Absolute Nucleated RBC 10^3/ul Nucleated RBC % ESR (0-40) mm/Hr INR (Anticoag Therapy) 0.91 (0.89-1.11) D-Dimer, Quantitative 601 H (Less Than 230) ng/mL Sodium (133-145) mmol/L Potassium (3.5-5.0) mmol/L Chloride (101-111) mmol/L Carbon Dioxide (22-32) mmol/L Anion Gap (2-11) mmol/L BUN (6-24) mg/dL Creatinine (0.67-1.17) mg/dL Est GFR ( Amer) (>60) Est GFR (Non-Af Amer) (>60) BUN/Creatinine Ratio (8-20) Glucose (70-100) mg/dL Lactic Acid 1.1 (0.5-2.0) mmol/L Calcium (8.6-10.3) mg/dL Magnesium (1.9-2.7) mg/dL Total Bilirubin (0.2-1.0) mg/dL AST (13-39) U/L ALT (7-52) U/L Alkaline Phosphatase (34-104) U/L Total Creatine Kinase (10-223) U/L CK-MB (CK-2) (0.6-6.3) ng/mL Troponin I (<0.04) ng/mL C-Reactive Protein (< 5.00) mg/L B-Natriuretic Peptide ( - 100) pg/mL Total Protein (6.4-8.9) g/dL Albumin (3.2-5.2) g/dL Globulin (2-4) g/dL Albumin/Globulin Ratio (1-3) Result Diagrams: 05/12/17 20:08 05/12/17 20:08 Lab Statement: Any lab studies that have been ordered have been reviewed, and results considered in the medical decision making process. - Radiology CXR Radiology Interpretation Completed By: Radiologist - Densities in the bilateral lung bases causing costophrenic angle blunting and could represent atelectasis, infiltrates or be the consequence of pulmonary edema perhaps with small pleural effusions. ED physician has reviewed this radiology report and agrees. - CT CTA Chest CT Interpretation Completed By: Radiologist - 1. No CT of evidence of pulmonary embolism. 2. Mild groundglass density seen at the bilateral dependent lower lobes could be due to mild pulmonary edema or simply hypoaeration. 3. Stable moderate size hiatal hernia. ED physician has reviewed this radiology report and agrees. - EKG 2004 Cardiac Rate: NL - BPM 73 EKG Rhythm: Sinus Rhythm EKG Interpretation: Normal AV IV conduction time. Normal QTc. Normal axis. EKG Comparison: No Significant Change - 04/28/17 Chest Pain Course/Dx - Course Assessment/Plan: This patient is a 67 year old M presenting to [facility] with a chief complaint of intermittent aching and stabbing CP since yesterday, worse since two hours ago. He reports heavy lifting yesterday and that it feels like a muscular thing. The CP does not radiate. The patient rates the pain 2/10 at baseline and 8/10 at its worse in severity. Symptoms aggravated by deep breaths. Symptoms alleviated by ibuprofen and sitting upright. Patient reports SOB. He denies taking blood thinning medications. He takes Cialis and Omeprazole daily. He states it does not feel like his GERD, but he has had a similar CP in the past. An EKG reveals NSR. CXR reveals Densities in the bilateral lung bases causing costophrenic angle blunting and could represent atelectasis, infiltrates or be the consequence of pulmonary edema perhaps with small pleural effusions. ED physician has reviewed this radiology report and agrees. CTA Chest reveals 1. No CT of evidence of pulmonary embolism. 2. Mild groundglass density seen at the bilateral dependent lower lobes could be due to mild pulmonary edema or simply hypoaeration. 3. Stable moderate size hiatal hernia. ED physician has reviewed this radiology report and agrees. I consulted Dr. Ortiz (hospitalist) at 2046 who agrees to admit the patient for observation. The patient is agreeable with this plan. - Chest Pain Differential Diagnosis/HQI/PQRI: Acute AK, ACS, Angina, GI Disease, Lower Respiratory Infection, Pulmonary Embolism - Diagnoses Provider Diagnoses: Chest pain in adult, Pleural effusion - Provider Notifications Discussed Care Of Patient With: Barak Ortiz Time Discussed With Above Provider: 20:47 Instructed by Provider To: Admit As Observation - Consulted Dr. Ortiz ( hospitalist) at 2046 who agrees to admit the patient for observation. - Critical Care Time Critical Care Time: 30-74 min - 30 minutes Discharge - Discharge Plan Condition: Stable Disposition: ADMITTED TO [facility] documentation as recorded by the Sonia singh Alfonso accurately reflects the service I personally performed and the decisions made by Kapil ny Barbara J, MD.
[2017-05-13 05:14] LABS: Hematocrit 32 % (42-52); Mean Corpuscular HGB Conc 34 g/dl (31-36); Mean Corpuscular Hemoglobin 30 pg (27-31); Mean Corpuscular Volume 87 fL (80-94); Mean Platelet Volume 7 um3 (7.4-10.4); Red Blood Count 3.71 10^6/ul (4.0-5.4); Red Cell Distribution Width 15 % (10.5-15)
[2017-05-13 05:31] LABS: BUN/Creatinine Ratio 15.7 (8-20); Calcium 8.1 mg/dL (8.6-10.3); EGFR African American 87.4 (>60); HDL Cholesterol 44.5 mg/dL; Potassium 3.4 mmol/L (3.5-5.0)
[2017-05-13] MEDS: Heparin VIAL(*) 5000 UNITS/ML VIAL (FIVE THOUSAND) SUBCUT SCH ×2 (05:40→14:15)
[2017-05-13] MEDS ORDERED: Aspirin Low Dose CHEW TAB* 81 MG PO SCH (09:00)
[2017-05-13] MEDS ORDERED: PARoxetine HCL TAB* 10 MG PO SCH (09:00)
--- NOTE | 2017-05-13 10:45 | RAD ---
INDICATION: Chest pain COMPARISON: CTA chest May 12, 2017 TECHNIQUE: A single day SPECT protocol was utilized. Rest images were acquired following the intravenous injection of 10.8 millicuries of technetium 99m tetrofosmin. Exercise stress images were acquired following the intravenous administration of 25.7 millicuries of technetium 99m tetrofosmin. The patient was exercised to a peak heart rate of 138 which is 91 of age predicted maximum. FINDINGS: There are no defects of the stress-induced or fixed nature. The cardiac chamber size is mildly prominent. There are no wall motion abnormalities. The ejection fraction is calculated at 59 percent during stress. Other: There is increased bibasilar atelectasis. There is a large hiatal hernia IMPRESSION: NO STRESS-INDUCED OR FIXED DEFECTS. NORMAL EJECTION FRACTION. ASSESSMENT: LOW-RISK Based on imaging criteria from ACC/AHA 2002 Guideline Update for the Management of Patients With Chronic Stable Angina Table 23. Noninvasive Risk Stratification.
--- NOTE | 2017-05-13 11:52 | PN ---
Subjective Date of Service: 05/13/17 Interval History: Patient seen and examined at bedside. Patient reports chest tightness in the middle of the night. He states that this episode was similar to his episode two weeks ago. Tolerated stress test this morning without difficulty. Moderate size hiatal hernia seen on CT. Family History: Unchanged from Admission Social History: Unchanged from Admission Past Medical History: Unchanged from Admission Objective Active Medications: Acetaminophen (Tylenol Tab*) 650 mg PO Q4H PRN PRN Reason: FEVER/PAIN Aspirin (Aspirin Low Dose Tab*) 81 mg PO DAILY [facility] Last Admin: 05/13/17 11:15 Dose: 81 mg Heparin Sodium (Porcine) (Heparin Vial(*)) 5,000 units SUBCUT Q8HR [facility] Last Admin: 05/13/17 05:40 Dose: 5,000 units Omeprazole (Prilosec Cap*) 20 mg PO QAM PRN PRN Reason: ACID REFLUX Ondansetron HCl (Zofran Inj*) 4 mg IV Q6H PRN PRN Reason: NAUSEA Paroxetine HCl (Paxil Tab*) 10 mg PO DAILY [facility] Last Admin: 05/13/17 11:15 Dose: 10 mg Vital Signs 05/12/17 05/12/17 05/13/17 21:45 23:40 03:27 Temperature 98.5 F 98.4 F 98.3 F Pulse Rate 77 84 67 Respiratory 18 20 18 Rate Blood Pressure 105/63 88/53 86/53 (mmHg) O2 Sat by Pulse 96 95 94 Oximetry Appearance: sitting up in bed, NAD Eyes: No Scleral Icterus, PERRLA Ears/Nose/Mouth/Throat: NL Teeth, Lips, Gums, Mucous Membranes Moist Neck: NL Appearance and Movements; NL JVP Respiratory: Symmetrical Chest Expansion and Respiratory Effort, Clear to Auscultation Cardiovascular: NL Sounds; No Murmurs; No JVD, RRR Abdominal: NL Sounds; No Tenderness; No Distention Extremities: No Edema Skin: No Rash or Ulcers Neurological: Alert and Oriented x 3, NL Muscle Strength and Tone Nutrition: Taking PO's Result Diagrams: 05/13/17 04:55 05/13/17 04:55 Assess/Plan/Problems-Billing Patient is a 67 year old male with a hx of IBS, nephrolithiasis who presented to the Ed with an episode of chest tightness similar to an episode the patient had had 3 weeks prior. - Patient Problems (1) Chest tightness or pressure (2) Hiatal hernia with gastroesophageal reflux (3) DVT prophylaxis (4) Full code status Status and Disposition: Observation for chest tightness; Stable to be discharged home.
--- NOTE | 2017-05-13 12:27 | ECHO ---
Patient: [facility] Rec#: [id number] : 1950 Date: 05/13/2017 Age: 67y Height: 187.96 cm / 74.0 in Weight: 81.65 kg / 180.0 lbs Sex: M BSA: 2.08 Room#: 445 Admit Date#: 05/12/2017 Type: Inpatient Referring: Thomas Quiñones NP Reading: Brenda Velazquez MD Gas Generator Operator: Peyton Chi,RDCS,RDMS CC: Linus Naik MD Transthoracic Echocardiogram Indication: CP BP: 86/53 HR: 86 Rhythm: NSR Findings History: Previously healthy Technical Comments: The study quality is good. Completed 1005 Left Ventricle: The left ventricular chamber size is normal. Mild concentric left ventricular hypertrophy is observed. Global left ventricular wall motion and contractility are within normal limits. The estimated ejection fraction is 55-60%. There is no consistent Doppler evidence of clinically significant diastolic dysfunction. Left Atrium: The left atrium is mildly dilated. Right Ventricle: The right ventricular chamber size and systolic function are within normal limits. Right Atrium: The right atrium is mildly dilated. Aortic Valve: The aortic valve is trileaflet. There is no evidence of aortic valve thickening. Systolic excursion of the aortic valve is normal. There is a trace of aortic regurgitation. There is no evidence of aortic stenosis. Mitral Valve: The mitral valve leaflets appear normal. There is a trace of mitral regurgitation. There is no evidence of mitral stenosis. Tricuspid Valve: The tricuspid valve leaflets are normal. There is trace to mild tricuspid regurgitation. No pulmonary hypertension is noted. Pulmonic Valve: The pulmonic valve appears normal. There is a trace pulmonic regurgitation. Pericardium: There is no significant pericardial effusion. Aorta: The aortic root appears normal. There is no dilatation of the aortic arch. Pulmonary Artery: The main pulmonary artery appears normal. Venous: The inferior vena cava appears normal in size. There is a greater than 50% respiratory change in the inferior vena cava dimension. Conclusions Mild concentric left ventricular hypertrophy is observed. Global left ventricular wall motion and contractility are within normal limits. The estimated ejection fraction is 55-60%. The right ventricular chamber size and systolic function are within normal limits. There is a trace of aortic regurgitation. There is a trace of mitral regurgitation. There is trace to mild tricuspid regurgitation. Normal PA pressure. No prior study to compare. Measurements Name Value Normal Range RVIDd (AP) 2D 2.8 cm (0.9 - 2.6) RVDdMajor (2D) 3.6 cm (2.2 - 4.4) RAd ISD 4CH 5.4 cm (3.4 - 4.9) RA (A4C)W 5.1 cm (2.9 - 4.6) IVSd (2D) 1.2 cm (0.6 - 1) LVPWd (2D) 1.2 cm (0.6 - 1) LVIDd (2D) 4.9 cm (3.6 - 5.4) LVIDs (2D) 3.2 cm - LV FS (2D) 36 % (25 - 45) Aortic Annulus 2 cm (1.4 - 2.6) Ao root diameter (2D) 3.1 cm (2.1 - 3.5) Ascending Ao 3 cm (2.1 - 3.4) Aortic arch 3.1 cm (1.8 - 3.4) LA dimension (AP) 2D 3.9 cm (2.3 - 3.8) LAd ISD 4CH 5.7 cm (2.9 - 5.3) LA ISD 4CH W 4.7 cm (2.5 - 4.5) Name Value Normal Range LA ESV SP 4CH (A/L) 72.58 ml - LA ESV SP 2CH (A/L) 74.98 ml - LA ESV BP (A/L) 74.41 ml - LA ESV BP (A/L) index 36 ml/m2 - LA ESV SP 4CH (MOD) 66.44 ml - LA ESV SP 2CH (MOD) 71.62 ml - Name Value Normal Range MV E-wave Vmax 0.7 m/sec - MV deceleration time 165 msec - MV A-wave Vmax 0.5 m/sec - MV E:A ratio 1.2 ratio - P. vein S-wave Vmax 0.7 m/sec - P. vein D-wave Vmax 0.5 m/sec - P. vein S:D Vmax ratio 1.2 ratio - P. vein A-wave duration 97 msec - LV septal e' Vmax 0.1 m/sec - LV lateral e' Vmax 0.09 m/sec - LV E:e' septal ratio 7 ratio - LV E:e' lateral ratio 8 ratio - Name Value Normal Range AV Vmax 1.3 m/sec - AV VTI 25 cm - AV peak gradient 7 mmHg - AV mean gradient 3.7 mmHg - LVOT Vmax 1 m/sec - LVOT VTI 22 cm - LVOT peak gradient 4 mmHg - LVOT mean gradient 2.5 mmHg - АЛЕКСАНДР Vmax 0.9 m/sec - Name Value Normal Range TR Vmax 2.4 m/sec - TR peak gradient 24 mmHg - RAP 3 mmHg - RVSP 27 mmHg - IVC diameter 1.9 cm - Name Value Normal Range PV Vmax 0.9 m/sec - PV peak gradient 3.2 mmHg -
[2017-05-13 13:17] VITALS: BP 119/67
--- NOTE | 2017-05-14 01:12 | DS ---
DISCHARGE SUMMARY: DATE OF ADMISSION: 05/12/17 DATE OF DISCHARGE: 05/13/17 PRIMARY CARE PROVIDER: Dr. Naik. ATTENDING PHYSICIAN: Harry Ramirez MD *(report dictated by Jessie Jiménez NP) REASON FOR OBSERVATION: 1. Atypical chest pain. 2. Hiatal hernia. SECONDARY DIAGNOSES: 1. Nephrolithiasis. 2. Melanoma. 3. Irritable bowel syndrome. 4. Benign prostatic hyperplasia. STUDIES WHILE IN THE HOSPITAL: 1. Nuclear medicine stress test, 05/13/17. No stress-induced or fixed defects. Normal ejection fraction. 2. Chest x-ray, 05/12/17, densities in the bilateral lung bases causing costophrenic angle blunting and could represent atelectasis, infiltrates could be the consequence of pulmonary edema, perhaps with small pulmonary effusions. 3. Transthoracic echocardiogram, 05/13/17, mild concentric left ventricular hypertrophy is observed. Global left ventricular wall motion and contractility within normal limits. The estimated ejection fraction is 55% to 60%. The right ventricular chamber size and systolic function are within normal limits. There is trace aortic regurgitation. There is trace mitral regurgitation. There is trace- to-mild tricuspid regurgitation. Normal PA pressure. 4. CT of the chest. No CT evidence of pulmonary embolism. 5. Mild ground glass densities seen in the bilateral dependent lobes could be due to mild pulmonary edema or simply hypoaeration. Stable moderate sized hiatal hernia. MEDICATIONS AT THE TIME OF DISCHARGE: New Medication: Tylenol 650 mg oral every 4 hours as needed. The following medications are the medications that the patient should continue: 1. Prilosec 200 mg oral in the morning as needed. 2. Paxil 10 mg oral daily. 3. Cialis 5 mg oral daily. HISTORY OF PRESENT ILLNESS AND HOSPITAL COURSE: Mr. Alan is a 67-year-old male with past medical history significant for IBS, GERD who presented to the emergency room with a complaint of chest tightness. He had a similar episode approximately 3 weeks ago. The patient was admitted to the telemetry floor and ruled out for acute coronary syndrome with serial troponins. The patient also had a fasting lipid profile that showed normal cholesterol, LDL of 85 and HDL of 44. The patient underwent a nuclear cardiac stress test, which did not show any perfusion defect. The patient also had an elevated CRP on admission. Hence , he had a transthoracic echocardiogram to assess for possible pericardial effusion. The echocardiogram was normal without any evidence of pericardial effusion. The patient's CAT scan as well as the nuclear medicine study did show a [id number] sized hiatal hernia. The patient does take Prilosec for this. It is likely that these symptoms are coming from worsening GERD. Hence, I encouraged the patient to eat early in the night and to not lie down and also try taking Prilosec at night to see if this helps alleviate his symptoms. On 05/13/17, vitals were as follows; temperature 99.4, heart rate 66 , respiratory rate 16, blood pressure 119/61, oxygen saturation 95%. At this point, the patient is stable for discharge. DISCHARGE PLAN: The patient is discharged on a low acid diet. The patient has activity as tolerated. The patient will follow up with Dr. Naik within 5 to 7 days. I have instructed the patient to also avoid ibuprofen. The patient should return to the hospital if he experiences any worsening shortness of breath or chest pain. I have reviewed all these instructions with the patient, he is agreeable with discharge today. This is a summarized report of a complex medical history and hospital stay. For more details, please see the entire medical record. TIME SPENT: Time for the discharge was 50 minutes, and 25 minutes was spent with the patient discussing diagnosis, discharge plans and followup instructions. CONDITION ON DISCHARGE: Stable. JESSIE JIMÉNEZ NP [id number]/[facility] #: [id number] PAPO
== END 2017-05-13 15:20 | disposition home or self-care (01) ==
LOC: ED 19:32 → MEDTELE 21:14
PROVIDERS: ADMIT Internal Medicine; ATTEND Hospitalist
DX: R07.89 Other chest pain (principal); K44.9 Diaphragmatic hernia without obstruction or gangrene; I36.1 Nonrheumatic tricuspid (valve) insufficiency; K21.9 Gastro-esophageal reflux disease without esophagitis; K58.9 Irritable bowel syndrome, unspecified; R06.02 Shortness of breath; Z85.820 Personal history of malignant melanoma of skin; Z79.899 Other long term (current) drug therapy
CPT/HCPCS: 36415; 71010; 71275; 78452; 80048; 80053; 80061; 82550; 82553; 83036; 83605; 83735; 83880; 84484; 85025; 85379; 85610; 85652; 86140; 93005; 93017; 93306; 96372; 99291; A9270-GY; A9502; J1644; Q9967

== ENCOUNTER 2018-08-09 11:40 | Day surgery (SDC) | payer MEDICARE ==
[~2018-08-09 11:40] MED LIST: Buffered Lidocaine 0.9% SYRIN* 5 ML/SYR SYRINGE INTRADERM ONE; Dexamethasone IV* 4 MG/ML 1 ML (4 MG) IV SLOW PU ONE; Dexamethasone IV* 4 MG/ML 1 ML (4 MG) ONE; Famotidine IV* 10 MG/ML 2 ML (20 mg) IV ONE; Famotidine IV* 10 MG/ML 2 ML (20 mg) ONE; Lactated Ringers 1000 ML Bag* 1,000 ML IV SCH; Midazolam* 1 MG/ML 5 ML VIAL (5 MG) ONE; ROPIVACAINE 5 MG/ML 30 ML BTL (0.5%) ONE; ceFAZolin 2 GM PREMIX in ORs 2 GM/50 ML BAG IVPB ONE; fentaNYL* 50 MCG/ML 2 ML VIAL (100 MCG VIAL) ONE
[2018-08-09] MEDS ORDERED: HYDROmorphone INJ1* 1 MG/ML SYRINGE IV PRN (11:50)
[2018-08-09] MEDS ORDERED: oxyCODONE TAB* 5 MG TAB PO PRN (11:50)
[2018-08-09] MEDS ORDERED: Naloxone* 0.4 MG/ML 1 ML VIAL IV PRN (11:50)
[2018-08-09] MEDS ORDERED: Acetaminophen TAB* 325 MG PO PRN (11:50)
[2018-08-09] MEDS ORDERED: DiMENhydriNATE IV* 50 MG/ML VIAL IV PUSH PRN (11:50)
[2018-08-09] MEDS ORDERED: Lidocaine 1% MPF wEPI 200,000* 30 ML SDV ONE (12:22)
[2018-08-09] MEDS ORDERED: ROPIVACAINE 5 MG/ML 30 ML BTL (0.5%) ONE (12:23)
[2018-08-09] MEDS ORDERED: Ketorolac INJ* 30 MG/ML 1 ML VIAL ONE (13:25)
[2018-08-09] MEDS ORDERED: Propofol* 10 MG/ML 20 ML BTL ONE (13:25)
[2018-08-09] MEDS ORDERED: Dexamethasone IV* 4 MG/ML 1 ML (4 MG) ONE (13:25)
[2018-08-09] MEDS ORDERED: Ondansetron INJ* 2 MG/ML VIAL ONE (13:25)
[2018-08-09] MEDS ORDERED: Lidocaine 2% PF * 5 ML VIAL ONE (13:25)
[2018-08-09] MEDS ORDERED: HYDROmorphone INJ* 0.5 MG/0.5 ML SYRINGE ONE (14:46)
[2018-08-09 16:19] VITALS: BP 113/73
--- NOTE | 2018-08-10 10:42 | OP ---
CC: PCP, Dr. Naik * DATE OF OPERATION: 08/09/18 - [facility] DATE OF : 48 SURGEON: Jonathan Veliz MD. WELLNESS MANAGER: ZOEY Mills. Home Decorator was needed for the entirety of the case to help with positioning, retraction, and was utilized throughout all portions of the case. ANESTHESIOLOGIST: Dr. Guadalupe. ANESTHESIA: General interscalene block. PRE-OP DIAGNOSES: Right shoulder full-thickness tear of the supraspinatus and infraspinatus tendon with proximal biceps rupture. POST-OP DIAGNOSES: Right shoulder full-thickness ruptures of the supraspinatus , part of the infraspinatus as well as part of subscapularis and proximal biceps rupture, mild chondrosis. OPERATIVE PROCEDURE: Right shoulder arthroscopy: 1. Extensive glenohumeral debridement. 2. Subacromial decompression with acromioplasty. 4. Rotator cuff repair in a double-row fashion of the supraspinatus, infraspinatus, and subscapularis. please use 22 modifier due to complexity and length of this case. IMPLANTS USED: Three Helicoils and two Multifixes. COMPLICATIONS: None. ESTIMATED BLOOD LOSS: Minimal. 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 The patient is very active and elected to proceed with surgical treatment. Risks and benefits of surgery were discussed at length and included, but are not limited to bleeding, infection, damage to nerves, vessels , surrounding structures, wound nonhealing, persistent pain, need for further surgery, scarring, stiffness, incomplete relief of symptoms, need for further surgery, and risk of anesthesia. DESCRIPTION OF PROCEDURE: The patient was greeted in the preoperative area by the attending surgeon. The correct extremity was marked and consent was confirmed. The patient then underwent interscalene nerve block by the anesthesiologist, after which, he was brought back to the operative suite, where he was placed in supine position on operating table. He then underwent general anesthesia and endotracheal intubation, after which he was placed in the left lateral decubitus position with all bony prominences padded. He was secured with peg board and axillary roll was placed. The right shoulder was then prepped and draped in usual sterile fashion beginning with chlorhexidine soap scrub, and alcohol wipe, and a final prep with ChloraPrep. After appropriate surgical pause indicating side, site, procedure, and administration of antibiotics, the standard postero-lateral portal was made sharply with #11 blade. The scope was introduced through the joint. The joint was examined. There was some mild chondrosis with grade 2 changes with unstable flaps. There was noted some proximal biceps rupture. The subscap initially seemed to be intact, but actually I think he tore the proximal portion of the subscap, although the inferior aspect of the subscap is intact, the coracoid was readily visible after removing some scar tissue. The inferior recess was intact. There was evidence of full thickness large retracted tear of the supra and infraspinatus tendons. This appeared to be traumatic tear. The anterior portal was made in an outside-in fashion. Shaver was used to debrided off the biceps stump along with biters and jennifer, the anterior and posterior superior labrum as well as doing small chondroplasty, the humerus had grade 1 changes. Attention was then directed to subacromial space. The scope was placed in subacromial space. The lateral portal was made in an outside-in fashion. Shaver was used to debrided back the abundant bursa. The undersurface of the acromion was skeletonized using electrocautery device that demonstrated anterolateral spur. The 4-0 oval jun was then used to do an acromioplasty. Once the acromioplasty was complete and the cuff was examined and mobilized. This was very unusual tear, there appeared to be a split down center of the supraspinatus tendon. It was fully retracted past the level of the glenoid, but there was also looking over the top of subscap evidence that part of the subscap was torn as well. There was evidence of a tear of the subscap as well though the MRI did not show that very well. As the cuff tissue was then carefully mobilized, and the subscap portion was identified scarred to the supraspinatus. As this was identified, there was evidence of a side-to- side split between the supra and infraspinatus tendons. This was then first repaired using a side-to- side suture, one #2 Ortho Braid suture was then used. After the [id number] suture was placed, the cuff was mobilized again. At this point, subscap was identified, it was not torn in typical fashion because all of the tissue did not retract the typical way, it is a very usual tear, but once the subscap was identified and mobilized, time was taken to remove the adhesions which were lysed. Once it was carefully mobilized, it was able to be brought to the footprint although this was time consuming. A traction stitch was placed on the subscap for visualization and to allow passage of sutures At this point a separate stab incision was made anteriorly, the shaver and electrocautery device were used to deride the soft tissue. A 4- 0 oval jun then used to gently prepare the lesser tuberosity. The 4.75 Helicoil was then placed with excellent purchase in the lesser tuberosity. Sutures passed in a horizontal mattress configuration through the subscap, this was the very superior portion of the tendon. They were then placed on tension and not fully tied down as it was still tethered to the remainder of the tear. At this point, attention was directed to greater tuberosity this was skeletonized in a similar fashion using electrocautery device, the red ball rasp , a 4-0 oval jun were then used to decorticate the footprint and allow for a bony bleeding bed. At this point, two Helicoils were placed through separate stab incisions with excellent purchase. The sutures were then passed through the tendon in horizontal mattress configuration. Tying began anteriorly with subscapularis, these were then tied down using arthroscopic knot tying technique. A strand from each knot was going to be pass through a lateral row fixation and the remaining rotator cuff sutures were tied down beginning anteriorly and then posteriorly. This helped to restore the rotator cuff and back to its footprint. At this point, one strand from each knot was then placed through a Multifix that was used for anterolateral row fixation . The subscap sutures were included to this as well. The extra remaining sutures of the subscap were then tied and cut. The remaining supra and infraspinatus tendon suture limbs were then passed through a second Multifix anchor placed in the posterolateral row fixation. This allowed for compression of rotator cuff with appropriate tension as the sutures were tied to the tendons. The portals were closed with 3-0 nylon . Sterile dressings were applied, Cryo/Cuff and UltraSling. He was awoken from anesthesia and transferred to PACU in stable condition DISCHARGE POSTOPERATIVE PLAN: He will be nonweightbearing. He will be discharged on pain medication. DVT prophylaxis was considered, but deferred due to no previous personal or family history. I will see the patient back in 10 to 14 days. [id number]/[facility] #: [id number] MTDD
== END 2018-08-09 16:18 | disposition home or self-care (01) ==
LOC: OREAST 11:40
PROVIDERS: ATTEND Orthopaedic Surgery
DX: S46.011A Strain of muscle(s) and tendon(s) of the rotator cuff of right shoulder, initial encounter (principal); S46.111A Strain of muscle, fascia and tendon of long head of biceps, right arm, initial encounter; X50.0XXA Overexertion from strenuous movement or load, initial encounter; Y93.89 Activity, other specified; Y92.9 Unspecified place or not applicable; G89.18 Other acute postprocedural pain; Z85.820 Personal history of malignant melanoma of skin
CPT/HCPCS: C1713; J0690; J1100; J1170; J1885; J2001; J2250; J2405; J2704; J2795; J3010